=== PATIENT | female | born 1975 | race African-American/Black ===

== ENCOUNTER 2019-09-24 09:17 | Observation (INO) ==
--- NOTE | 2019-09-24 10:47 | PROVIDER DOCUMENTATION ---
HPI-General Adult - General Chief Complaint: Weakness Stated Complaint: WEAKNESS, DIZZINESS Time Seen by Provider: 09/24/19 09:44 Source: patient, family Allergies/Adverse Reactions: Patient Allergies Allergy/AdvReac Type Severity Reaction Status Date / Time ondansetron Allergy ABDOMINAL Verified 09/24/19 15:08 [From Zofran (as PAIN hydrochloride)] Sulfa (Sulfonamide Allergy ITCHING Verified 09/24/19 15:08 Antibiotics) Home Medications: Home Medication List Medication Instructions Recorded Confirmed Last Taken Type Amlodipine Besylate 10 mg PO DAILY 06/16/17 09/24/19 09/24/19 06:00 History Furosemide 40 mg PO DAILY 06/16/17 09/24/19 09/24/19 07:00 History Hydroxyzine HCl 25 mg PO DAILY 06/16/17 09/24/19 08/11/19 History Lisinopril/Hydrochlorothiazide 1 each PO DAILY 06/16/17 09/24/19 09/24/19 07:00 History [Lisinopril-Hctz 20-25 mg Tab] Sertraline HCl 100 mg PO DAILY 06/16/17 09/24/19 09/24/19 07:00 History Hydroxyzine Pamoate [Vistaril] 25 mg PO BID 09/24/19 09/24/19 09/24/19 07:00 History Metformin [Glucophage] 500 mg PO DAILY 09/24/19 09/24/19 09/24/19 07:00 History - History of Present Illness -Gen Adult Nature of Presenting Problems: 43yo female presents with CC of weakness. The family reports that the patient had noted weakness starting today. The patient recently had a stomach bug but had improved since last week. The patient is orient to person only. The patient is currently lethargic, but does respond to some questions and commands. The family report that she has not had a fever since last week. The patients only complaint is abdominal pain. The family do report that the patient is currently on her peroid and has been bleeding a little longer than usual. Location of Pain/Injury: reports: abdomen Severity: reports: mild Onset/Duration: reports: other (today) Timing: reports: still present Context/Activities at Onset: reports: other (recent GI illness) Associated Symptoms: reports: cough, genitourinary problems (vaginal bleeding), malaise, nausea, weakness, trouble walking. denies: fever/chills Review of Systems - Adult - REVIEW OF SYSTEMS - ADULT Constitutional: reports: no symptoms reported. denies: fever Eyes: reports: no symptoms reported. denies: eye pain Ears, Nose, Mouth & Throat: reports: no symptoms reported. denies: throat pain Cardiovascular: reports: no symptoms reported. denies: chest pain Respiratory: reports: no symptoms reported Gastrointestinal: reports: abdominal pain, nausea Genitourinary: reports: other (vaginal bleeding on period) Musculoskeletal: reports: no symptoms reported Integumentary: reports: no symptoms reported Neurological: reports: other (weakness and lethargy). denies: headache/migraines Psychiatric: reports: no symptoms reported. denies: alcohol/drug dependence Endocrine: reports: no symptoms reported Hematologic/Lymphatic: reports: no symptoms reported, other (no bleeding) Allergic/Immunologic: reports: no symptoms reported Past History - Adult - PAST MEDICAL HISTORY-ADULT Review of Records: reports: Old Records Reviewed, Nursing Assessment Review, Medications Reviewed Major Childhood Illnesses: reports: denies history Cardiovascular: reports: HTN Respiratory: reports: denies history Gastrointestinal: reports: GERD Obstetrical/Gynecological: reports: denies history Genitourinary: reports: denies history Musculoskeletal: reports: denies history Neurological: reports: denies history Psychiatric: reports: depression Endocrine/Immune: reports: Diabetes Other Conditions: reports: denies history - PRIOR SURGERIES/PROCEDURES Surgical/Procedure History: reports: cholecystectomy, , hernia repair - IMMUNIZATION STATUS Childhood Immunizations: See Nurse Assessment Flu Vaccine: See Nurse Assessment - FAMILY HISTORY Family History: reviewed, not pertinent - SOCIAL HISTORY Smoking: denies Substance Use: denies Physical Exam-General - PHYSICAL EXAM-ADULT Initial Vital Signs Reviewed: Yes - CONSTITUTIONAL General Appearance: no apparent distress, obese, lethargic, slow to respond - EYES Eyes: PERRL/EOMI. negative: conjuctival exudate, photophobia, scleral icterus - HEAD, EARS, NOSE, MOUTH & THROAT HENMT: normocephalic/atraumatic, moist mucous membranes, pharynx normal. negative: hearing deficit, pharyngeal erythema - NECK Neck: non-tender. negative: lymphadenopathy - RESPIRATORY Respiratory: normal breath sounds, no respiratory distress - CARDIOVASCULAR Cardiovascular: regular rate, rhythm. negative: no edema (trace LE edema) - GASTROINTESTINAL (ABDOMEN) Abdominal Exam: soft, tenderness (RUQ and RLQ and suprapubic) - MUSCULOSKELETAL Extremity: non-tender, other (strenghth 4/5 in the upper extremities bilaterally, and 5/5 in the LE) - SKIN Integumentary: normal color, warm/dry - NEUROLOGIC Neurologic: moose hunter II-XII nml as tested. negative: facial droop - PSYCHIATRIC Psych/Mental Status: depressed affect, other (lethargic) Progress - PLAN OF CARE/RESULTS Progress/Plan/Lab Results: Vital Signs - 8 hr 09/24/19 09:45 Temperature 98.8 F Pulse Rate 67 Respiratory Rate 16 Blood Pressure 144/79 O2 Sat by Pulse Oximetry 100 Laboratory Results - last 24 hr 09/24/19 10:11 POC Glucose 87 Orders Category Date Time Status Cardiac Monitoring DIRECTED Care 09/24/19 10:40 Ordered Finger Stick Blood Sugar (ED) DIRECTED Care 09/24/19 10:40 Ordered Oxygen Therapy- ED Nursing DIRECTED Care 09/24/19 10:40 Ordered Saline Loc NOW Care 09/24/19 10:40 Ordered CHEST-PORTABLE [RAD] Stat Exams 09/24/19 10:[address] HEAD W/O CONTRAST [CT] Stat Exams 09/24/19 10:40 Ordered ABG [RESP] Stat Lab 09/24/19 10:40 Ordered ALCOHOL BLOOD Stat Lab 09/24/19 10:40 Uncollected CBC WITH ELECTRONIC DIFF [HEME] Stat Lab 09/24/19 10:40 Uncollected CK PROFILE [SP CHEM] Stat Lab 09/24/19 10:40 Uncollected COMPREHENSIVE METABOLIC PANEL [CHEM] Stat Lab 09/24/19 10:40 Uncollected LACTATE, PLASMA [CHEM] Stat Lab 09/24/19 10:40 Uncollected PROTIME WITH INR [COAG] Stat Lab 09/24/19 10:40 Uncollected PTT [COAG] Stat Lab 09/24/19 10:40 Uncollected TROPONIN T HIGH SENSITIVITY Stat Lab 09/24/19 10:40 Uncollected TSH Stat Lab 09/24/19 10:41 Uncollected Altered Mental Status Stat Oth 09/24/19 10:39 Ordered EKG [EKG] Stat Ther 09/24/19 10:40 Ordered Result Diagrams: 09/24/19 10:20 09/24/19 11:41 - REASSESSMENT Reassessment #1 Status: other (Given persistent difficulty walking and sudden onset discussed case with Dr. Gaona at [place]. Given non-specific symptomatology he recomended CTA in the ED and if a clot is noted to send to [place], if not clot then admit for MRI here.) Reassessment #2 Status: other (CTA negative for clots. Discussed with the hospitalist team who has accepted the patient.) - EKG 1 Time of EKG reading by physician:: 10:42 EKG Read and Signed by:: Paco Ahmadi (Entered Co-read [facility]) EKG Interpretation (*Must complete 3 of following elements*): Abnormal Rate: 58 Rhythm: sinus [place]: normal QRS: normal [place] Interval: normal ST Wave: normal Departure - Departure Date of Disposition Decision: 09/24/19 Time of Disposition Decision: 19:22 DIAGNOSIS: Weakness Altered mental state Qualifiers: Altered mental status type: unspecified Qualified Code(s): R41.82 - Altered mental status, unspecified Disposition: ADMITTED INPATIENT 09 Certified Medical Emergency: Emergent Condition: Fair Referrals and Follow-Ups: None,PCP [Primary Care Provider] - - Critical Care Note This patient required my direct & personal management of CC.: No Attestation - Physician/ VENTURA Attestation Patient care was provided by Advanced Practice Provider:: No The physician spent face to face time with patient:: Yes Advanced Practice Provider documentation review:: Supervising physician onsite and consulted in the evaluation and care of this patient. The physician did have a face to face encounter with the patient.
--- NOTE | 2019-09-24 10:49 | EKG Report ---
Test Performed on : 09/24/2019 10:42:44 AM Test Reason : Altered Mental Status Blood Pressure : / mmHG Vent. Rate : 058 BPM Atrial Rate : 058 BPM P-R Int : 162 ms QRS Dur : 080 ms QT Int : 426 ms P-R-T Axes : 030 -03 014 degrees QTc Int : 418 ms Sinus bradycardia. Low voltage QRS Borderline ECG When compared with ECG of 16-JUN-2017 16:15, No significant change was found Unconfirmed Result
--- NOTE | 2019-09-24 10:56 | Diag Imaging Result Doc PS360 ---
EXAM: CHEST-PORTABLE 09/24/2019 HISTORY: Altered Mental Status TECHNIQUE: AP portable upright at 1050 COMMENT: There is no evidence of acute cardiac or pulmonary disease. There are no previous studies. IMPRESSION: No acute abnormality. Electronically signed by Allen Romo 09/24/2019 10:54 AM
[2019-09-24 11:01] LABS: URINE SOURCE CLEAN CATCH
[2019-09-24 11:05] LABS: BASO# 0.03 X1000 (0.0-0.2); BASO% 0.4 % (0.0-0.8); EOS# 0.42 X1000 (0.0-0.7); EOS% 6.1 % (0.0-10.0); HEMATOCRIT 42.1 % (37.0-47.0); HEMOGLOBIN 13.5 g/dL (12.0-16.0); LYMPH% 46.2 % (20.5-51.1); MCH 28.5 PG (27-31); MCHC 32.1 g/dL (33-37); MCV 88.8 FL (81-99); MONO# 0.46 X1000 (0.11-0.59); MONO% 6.6 % (1.7-9.3); MPV 11.2 FL (7.4-10.4); NEUT# 2.82 X1000 (1.4-6.5); NEUT% 40.7 % (42.2-75.2); PLT 156 X1000 (130-400); RBC 4.74 XMIL (4.2-5.4); RDW 14.9 % (11.5-14.5); WBC 6.93 X1000 (4.8-10.8)
--- NOTE | 2019-09-24 11:10 | Diag Imaging Result Doc PS360 ---
CT HEAD W/O CONTRAST - 09/24/2019 INDICATION: Head injury COMPARISON: None FINDINGS: The ventricles and sulci are normal in size and contour. No intracranial mass or hemorrhage. The skull is intact. The sinuses mastoids and middle ears are clear. IMPRESSION: Negative exam. This exam was performed using automated exposure control, adjustment of mA or kV according to patient size, and/or use of iterative reconstruction technique Electronically signed by Matthias Swanson 09/24/2019 11:08 AM
[2019-09-24 11:16] LABS: BILIRUBIN URINE NEGATIVE (NEGATIVE); BLOOD URINE TRACE (NEGATIVE); COLOR YELLOW; GLUCOSE URINE NEGATIVE (NEGATIVE); KETONE URINE NEGATIVE (NEGATIVE); LEUKOCYTES URINE NEGATIVE (NEGATIVE); NITRITE URINE NEGATIVE (NEGATIVE); PH URINE 6.5; PROTEIN URINE NEGATIVE (NEGATIVE); SP GRAVITY URINE 1.016; TURBIDITY URINE CLEAR (CLEAR); UROBILINOGEN URINE NORMAL (NORMAL)
[2019-09-24 11:17] LABS: UR EPITHELIAL CELLS <10 /HPF (<10); URINE BACTERIA NEGATIVE /HPF; URINE RBC <10 /HPF (<10); URINE WBC <10 /HPF (<10)
[2019-09-24 11:18] LABS: ALLEN TEST YES; BE 0.3 mmoll (-3.0-3.0); BLOOD TYPE ARTERIAL; HCO3-(ACT) 25.1 mmoll (20.0-26.0); METHB 0.8 % (0.0-1.5); O2(CT) 18.3 mL/dL (15.0-23.0); O2HB 94.3 % (95.0-99.0); PCO2(98.6) 38 mmHg (35-45); PO2(98.6) 67 mmHg (60-100); SAMPLE BLOOD; SAO2 96.7 % (95.0-100.0); THB 13.8 g/dL (11.5-17.4); pH(98.6) 7.42 (7.35-7.45)
[2019-09-24 11:19] LABS: MODALITY ROOM AIR
[2019-09-24 11:49] LABS: UR AMPHETAMINES MT NONE DETECTED (NONE DETECT); UR BARBITUATES MT NONE DETECTED (NONE DETECT); UR BENZODIAZ MT NONE DETECTED (NONE DETECT); UR CANNABIS MEDTOX NONE DETECTED (NONE DETECT); UR COCAINE MT NONE DETECTED (NONE DETECT); UR METHADONE MEDTOX NONE DETECTED (NONE DETECT); UR OPIATES MT NONE DETECTED (NONE DETECT); UR OXYCODONE MEDTOX NONE DETECTED (NONE DETECT); UR PCP MEDTOX NONE DETECTED (NONE DETECT)
[2019-09-24] MEDS ORDERED: NS 1,000 ML IV ONE (11:56)
[2019-09-24 11:59] LABS: PROTIME 13.3 Seconds (11.0-16.0)
[2019-09-24 12:00] LABS: PTT 31.5 Seconds (22.3-41.8)
[2019-09-24 12:28] LABS: ACETAMINOPHEN < 1.2 ug/mL (10-30); AGAP 11; ALB/GLOB RATIO 1.1; ALBUMIN 3.7 g/dL (3.5-5.0); ALKALINE PHOSPHATASE 59 U/L (32-104); BUN 15 mg/dL (8-22); CHLORIDE 106 mmol/L (98-107); CK PROFILE 289 U/L (24-173); COSMO 284; CREATININE 0.8 mg/dL (0.5-0.9); ESTIMATED GFR > 60; GLUCOSE 102 mg/dL (70-104); GOT 30 U/L (10-30); GPT 23 U/L (10-36); POTASSIUM 4.3 mmol/L (3.5-5.1); SALICYLATES < 3.00 mg/dL (3-10); SODIUM 142 mmol/L (136-145); TCO2 25 mmol/L (25-35); TOTAL BILIRUBIN 0.15 mg/dL (0.20-1.00)
[2019-09-24 12:44] LABS: CK INDEX 0.8 (0.0-2.5)
--- NOTE | 2019-09-24 13:55 | Diag Imaging Result Doc PS360 ---
CT ABD/PELVIS W/IV CONT ONLY - 09/24/2019 INDICATION: Abdominal Pain COMPARISON: None FINDINGS: The lung bases are clear and the heart size is normal. There is a tiny benign lipoma in the superior dome of the liver measuring about 1 cm. There are cholecystectomy clips. No bowel obstruction or inflammation. There is ventral hernia repair mesh. No recurrence. Urinary bladder, uterus, ovaries, and rectum are normal. Bones are intact and normally mineralized. IMPRESSION: No acute disease. This exam was performed using automated exposure control, adjustment of mA or kV according to patient size, and/or use of iterative reconstruction technique Electronically signed by Matthias Swanson 09/24/2019 1:53 PM
--- NOTE | 2019-09-24 16:47 | Diag Imaging Result Doc PS360 ---
CT ANGIOGRAM HEAD/NECK - 09/24/2019 INDICATION: Ataxia and weakness TECHNIQUE: Axial CT images were obtained after administering intravenous contrast. Three-dimensional angiographic images were generated. COMPARISON: Head CT from earlier today FINDINGS: Normal aortic arch. The great vessel origins are normal. The carotid and vertebral arteries are normal bilaterally. The jugular veins are patent and appear normal. The intracranial arteries are all normal. There is no aneurysm or stenosis. No vascular calcification. No significant plaque buildup. IMPRESSION: Negative exam. This exam was performed using automated exposure control, adjustment of mA or kV according to patient size, and/or use of iterative reconstruction technique Electronically signed by Matthias Swanson 09/24/2019 4:44 PM
[2019-09-24] MEDS ORDERED: NS 1,000 ML IV SCH (20:45)
[2019-09-24] MEDS: HUMALOG SUBQ SCH (21:00)
[2019-09-24] MEDS: NS 1,000 ML IV SCH (22:38)
[2019-09-25] MEDS ORDERED: MORPHINE ONE (02:12)
[2019-09-25] MEDS ORDERED: MORPHINE IV ONE (02:23)
[2019-09-25] MEDS: PHENERGAN IV PRN ×3 (03:28→17:17)
[2019-09-25] MEDS: HUMALOG SUBQ SCH ×4 (07:54→21:41)
--- NOTE | 2019-09-25 08:38 | HISTORY AND PHYSICAL ---
CHIEF COMPLAINT: Altered mental status as well as weakness. HISTORY OF PRESENT ILLNESS: Ms. Yuko Knapp is a 43-year-old female who has a history of hypertension, diabetes mellitus, as well as depression. The patient describes a change in her mental status. She does work as a occupational health nursing director at [employer] and according to the patient, the last thing she remembers was when she reported to work around 7 a.m. on 09/24/2019 and next thing she remembers after that is being in the emergency room at [facility]. She has never had memory issue like this in the past. She describes dizziness as well as generalized weakness. She indicates that she has been stressed out lately. When she presented to the hospital, she did have a CT scan of the brain done which did not reveal any acute lesions. The patient will be admitted to the floor for further management. PAST MEDICAL HISTORY: Morbid obesity, hypertension, diabetes, depression, gastroesophageal reflux disease. SOCIAL HISTORY: No cigarette smoking. No alcohol or drug use. ALLERGIES: She is allergic to Zofran as well as Bactrim. FAMILY HISTORY: Positive for heart disease and lupus, prediabetes. PAST SURGICAL HISTORY: She has had a cholecystectomy as well as a section. MEDICATIONS: Include the followin. Amlodipine 10 mg p.o. daily. 2. Furosemide 40 mg p.o. daily. 3. Hydroxyzine 25 mg p.o. once a day. 4. Lisinopril/hydrochlorothiazide 20/25 1 daily. 5. Sertraline 100 mg p.o. daily. 6. Hydroxyzine 25 mg p.o. twice daily. 7. Metformin 500 mg p.o. daily. REVIEW OF SYSTEMS: Constitutional: No fever. Central nervous system: No headaches. Eyes: She has blurred vision. ENT: No sinus problems or hearing loss. Cardiovascular: No chest pain. Respiratory: No cough. Gastrointestinal: She does have abdominal pain. Genitourinary: No dysuria. Musculoskeletal: No joint pains. Dermatology: She skin lesions. Hematology: No bleeding problems. Endocrine/Allergies: She has diabetes. No thyroid disease. Psychiatry: Has depression. Allergic/immunologic: No symptoms suggestive of allergic rhinitis. PHYSICAL EXAMINATION: VITAL SIGNS: Temperature 98.8 degrees, pulse 67, respiratory rate 16, blood pressure 144/79, oxygenation is 100%. HEENT: Atraumatic, normocephalic. She is anicteric. Extraocular movements intact. No oral lesions noted. NECK: No lymphadenopathy or thyromegaly. Neck is supple. CARDIOVASCULAR: S1, S2. RESPIRATORY: Has evidence of good air entry bilaterally. ABDOMEN: Soft, nontender. There is some vague tenderness in the region of the left side of the abdomen. No obvious masses felt. EXTREMITIES: No significant edema. CENTRAL NERVOUS SYSTEM: No obvious focal deficit noted. LABORATORY DATA: WBC 6.93, hematocrit is 42.1 with a platelet count of 156,000. Sodium is 142, potassium 4.3, chloride is 106, bicarb 25, BUN 15, creatinine 0.8. CPK level is 289. Urine drug screen is negative. IMAGING: CT scan of the head unremarkable for any acute lesions. CT scan of the abdomen and pelvis, negative study. CT angiogram of the head and neck negative. ASSESSMENT AND PLAN: 1. Encephalopathy. Query etiology. We will closely follow up on patient's neurologic status. Obtain an MRI of the brain along with an EEG. Obtain Neurology evaluation. 2. Generalized weakness. We will check thyroid profile, INES level, B12 level, vitamin D level, CPK levels. Recommend PT as well as OT. 3. Diabetes mellitus. Monitor blood sugar levels. Maintain patient on sliding scale insulin. 4. Hypertension. Optimize blood pressure control. 5. Gastroesophageal reflux disease. Maintain patient on proton pump inhibitor. 6. Morbid obesity. The patient will need to make some lifestyle modifications. We will recommend a low calorie diet as well as an exercise program in the outpatient. 7. Deep vein thrombosis prophylaxis. Lovenox. 8. Gastrointestinal prophylaxis. Proton pump inhibitor. cc: Tristen Ellis MD
[2019-09-25] MEDS ORDERED: VITAMIN D PO SCH (09:00)
--- NOTE | 2019-09-25 12:18 | Diag Imaging Result Doc PS360 ---
EXAM: MRI BRAIN W/O CONTRAST 09/24/2019 HISTORY: r/o cva TECHNIQUE: T1 sagittal, axial and axial T2, FLAIR, DWI, coronal gradient echo. COMMENT: There are no previous studies available for comparison. There is a pulsatility artifact projected over the kina on the T2-weighted images. There is no evidence of mass effect, bleed, or abnormal extra-axial fluid collection. There are some punctate foci of increased T2-weighted signal intensity in the subcortical white matter of both hemispheres particularly in the anterior right parietal lobe. There is no evidence of restricted diffusion. IMPRESSION: No evidence of acute intracranial disease. Chronic minimal microvascular white matter changes. Electronically signed by Allen Romo 09/25/2019 12:16 PM
[2019-09-25] MEDS: PRILOSEC PO SCH (12:56)
[2019-09-25] MEDS: SODIUM CHLORIDE 0.9% INJ PRN ×2 (12:59→17:18)
[2019-09-25] MEDS: ASPIRIN PO SCH (12:59)
[2019-09-25] MEDS: NS 1,000 ML IV SCH (13:01)
[2019-09-25] MEDS ORDERED: TYLENOL PO PRN (15:40)
--- NOTE | 2019-09-25 16:53 | EEG REPORT ---
DATE: 09/25/2019 REFERRING: Dr. Ellis. RETAIL ZONE SPECIALIST: Krupa Aguillon. BACKGROUND INFORMATION/TECHNIQUE: This is a digitally recorded routine EEG with video. HISTORY: A 43-year-old, female patient with altered mental status. There was memory gap. She recalls reporting to work yesterday morning. The next thing she recalls is waking up in the emergency department. She reported dizziness and generalized weakness as well as increased stress. EEG is ordered to detect evidence of seizures. EEG FINDINGS: A moderately well-formed 9 to 10 Hz posterior dominant alpha rhythm is seen symmetrically in the occipital regions and attenuates with eye opening. The anterior background consists of mixed alpha and beta range frequencies. No focal slowing. No epileptiform discharges. No seizures. Hyperventilation induces mild diffuse physiologic slowing. Photic stimulation does not alter the record. The patient becomes drowsy and enters into stage N2 sleep with qualitatively normal sleep architecture. The EKG demonstrates regular RR intervals. IMPRESSION AND CLINICAL CORRELATION: Normal routine EEG in the awake, drowsy, and sleep states. Of note, a normal EEG does not rule out epilepsy. Clinical correlation is recommended. cc: MD Tristen Coughlin MD
--- NOTE | 2019-09-25 18:28 | PROGRESS NOTE ---
DATE: 09/25/2019 Patient was admitted early this morning is a 43-year-old who came in with altered mental status. She has a history of hypertension, diabetes mellitus type 2, history of depression, anxiety. Describes a change in her mental status. She went to work and that is really last she remembers. She works at [employer] and according to the patient, last thing she remembers was she reported to work around 7 o'clock in the morning on 07/25/2020. Next thing she remembers she was being in the emergency room at [facility]. She has never had any memory issues like this. She describes some dizziness as well, generalized weakness, indicates that she has been under stress lately and she presented to the hospital. CT scan of the head without contrast was negative. MRI of the brain was completely negative, EEG completely unremarkable, chest x-ray and lab all unremarkable. She can recall the events of the day before. She has no focal neurologic deficits. PHYSICAL EXAM: Temperature 98.3 degrees, pulse 70, respirations 18, blood pressure 122/62. Pupils are equal and round.Lungs: Clear in all lung mcdermott. Cardiovascular: Regular rhythm and rate without murmur or S3. Abdomen: Soft. Skin: Warm and dry. Neurologic: Cranial nerves 2- 12 intact. Motor strength equal and symmetrical 4+ out of 5 and sensory all intact. Cerebellar function normal. She has good insight and good memory recall for today, there is about a 12 hour period where she just does not remember much at all. ASSESSMENT AND PLAN: 1. I suspect she may have had transient global amnesia and will discuss with Dr. Sotomayor tomorrow. She appears to be clinically stable. 2. Diabetes mellitus type 2. Sugars under good control. 3. Blood pressures look excellent. Review of her orders. Currently she is on aspirin 325 mg a day, vitamin D 50,000 units every week, getting normal saline at 75 mL an hour. cc: MD Tristen Man MD MTDD
[2019-09-26] MEDS: NS 1,000 ML IV SCH ×2 (03:10→16:31)
[2019-09-26] MEDS: HUMALOG SUBQ SCH ×3 (06:54→16:30)
[2019-09-26] MEDS: PRILOSEC PO SCH (06:54)
[2019-09-26] MEDS: ASPIRIN PO SCH (08:42)
--- NOTE | 2019-09-26 14:25 | PROGRESS NOTE ---
DATE: 09/26/2019 SUBJECTIVE: Ms. Knapp has not had anymore trouble. No trouble with memory. No focal neurologic changes. We put her on a healthy heart diet. She is tolerating that fine. OBJECTIVE: Vital Signs: She remains afebrile, temperature 98.1 degrees, pulse 72, respirations 18, blood pressure 128/82. HEENT: Pupils are equal and round. Lungs: Clear in all lung mcdermott. Cardiovascular: Regular rhythm and rate without murmur or S3. Input and Output: Urine output was 500 mL. ASSESSMENT AND PLAN: 1. Suspect the patient has had transient global amnesia, but she would like to talk to Neurology and she has not had any further deficits. Workup was completely negative. 2. Diabetes mellitus type 2. Sugars under good control. 3. Blood pressures appear optimal. I will see if I discuss with Dr. Otero and see if I can get him to examine her. cc: MD Tristen Man MD
[2019-09-26 15:35] VITALS: BP 133/77
--- NOTE | 2019-09-26 18:30 | DISCHARGE SUMMARY ---
ADMISSION DATE: 09/24/2019 DISCHARGE DATE: 09/26/2019 BRIEF HISTORY: This is a 43-year-old black female with a history of hypertension, diabetes mellitus, was well as depression. The patient described change in her mental status. 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 on 09/24/2019 and the next thing she remembers she was in the emergency room at [facility]. She has never had memory issues like this. Describes dizziness as well as generalized weakness. Indicates she has been stressed out lately. When she presented to the hospital, she did have a CT of the brain, which was done but did not reveal any acute lesions. The patient will be admitted to the floor for further management. PAST MEDICAL HISTORY: Of morbid obesity, hypertension, diabetes, depression, gastroesophageal reflux disease. HOSPITAL COURSE: Admitted to the hospital with encephalopathy. There were no focal neurologic deficits, just mainly trouble with memory. She was not sure and felt like she might have some general weakness. We checked INES and B12 and vitamin D level, electrolytes and everything unremarkable. Her blood sugars seem to be fairly well controlled and her white blood cell count was 6930. Hematocrit was 42, platelet count 156,000. Pro Time is 13. Blood sugars 118, 107, 105, 97, 89. Thyroid, TSH, within normal limits. Cortisol level was 3.9, which was fairly nonspecific. This was checked in the morning, so it may be on the low side but she did not have any trouble with low blood pressures significantly low. Her blood pressure range of 114 to 133 over 75 to 82. We did an MRA of the head, unremarkable. CT of the head without contrast. Unremarkable EEG, completely normal. She had no further trouble and really felt like her diagnosis was consistent with transient global amnesia. We will put her on a baby aspirin. She would like to go home. DISCHARGE INSTRUCTIONS: I am going to continue her current medications she was taking at home. She was on amlodipine 10 mg a day, furosemide 40 mg a day, hydroxyzine 25 mg a day. Vistaril 25 mg b.i.d., lisinopril hydrochlorothiazide 20-25 1 a day, metformin 500 mg a day, and sertraline 100 mg daily. We will add a baby aspirin to her regimen. FOLLOW-UP INSTRUCTIONS: Have her follow up with her primary care physician in a couple weeks. cc: MD Tristen Man MD
== END 2019-09-26 18:45 | disposition home or self-care (01) ==
LOC: SUPCPDRO → ED 09:17 → EDIPHOLD 22:11 → SUATTDRO 22:11 → INTOOBSV 22:11 → 4N 09-25 09:03
PROVIDERS: ADMIT Internal Medicine; ATTEND Emergency Medicine